=== PATIENT | male | born 1980 | race Caucasian/White ===

== ENCOUNTER 2018-03-22 05:28 | Emergency (ER) | payer BC ==
[2018-03-22] MEDS ORDERED: Sodium Chloride 0.9% 1,000 ML IV ONE (05:41)
--- NOTE | 2018-03-22 05:43 | EDM.PDOC ---
ED HPI GENERAL MEDICAL PROBLEM - General Chief Complaint: General Stated Complaint: HEAT EXHAUSTION Time Seen by Provider: 03/22/18 05:37 - History of Present Illness INITIAL COMMENTS - FREE TEXT/NARRATIVE: HISTORY AND PHYSICAL: History of present illness: Patient 37-year-old white male presents with a concern of possible heat illness. He was at a wedding recently was outdoors he felt somewhat poor after wetting is out working yesterday and states he felt nauseous he's had some diarrhea and a subsequent relearned that many people at the wedding were feeling similar. No reported fever no chest pain shortness breath no abdominal pain or other concern Review of systems: As per history of present illness and below otherwise all systems reviewed and negative. Past medical history: As per history of present illness and as reviewed below otherwise noncontributory. Surgical history: As per history of present illness and as reviewed below otherwise noncontributory. Social history: No reported history of drug or alcohol abuse. Family history: As per history of present illness and as reviewed below otherwise noncontributory. Physical exam: HEENT: Atraumatic, normocephalic, pupils reactive, negative for conjunctival pallor or scleral icterus, mucous membranes dry throat clear, neck supple, nontender, trachea midline. Lungs: Clear to auscultation, breath sounds equal bilaterally, chest nontender. Heart: S1S2, regular, negative for clicks, rubs, or JVD. Abdomen: Soft, nondistended, nontender. Negative for masses or hepatosplenomegaly. Negative for costovertebral tenderness. Pelvis: Stable nontender. Genitourinary: Deferred. Rectal: Deferred. Extremities: Atraumatic, negative for cords or calf pain. Neurovascular unremarkable. Neuro: Awake, alert, oriented. Cranial nerves II through XII unremarkable. Cerebellum unremarkable. Motor and sensory unremarkable throughout. Exam nonfocal. Diagnostics: CBC CMP chest x-ray UA Therapeutics: Saline 1 L bolus Zofran 4 mg IV Impression: #1 dehydration #2 probable viral illness Definitive disposition and diagnosis as appropriate pending reevaluation and review of above. ED ROS GENERAL - Review of Systems Review Of Systems: ROS reveals no pertinent complaints other than HPI. ED EXAM, GENERAL - Physical Exam Exam: See Below (See dictation) Course - Orders/Labs/Meds Orders: Active Orders 24 hr Category Date Time Status CBC W/O DIFF,HEMOGRAM [HEME] Stat Lab 03/22/18 05:40 Ordered COMPREHENSIVE METABOLIC PN,CMP [CHEM] Stat Lab 03/22/18 05:40 Ordered URINALYSIS W/MICROSCOPIC [UA W/MICROSCOPIC] [URIN] Stat Lab 03/22/18 05:40 Ordered Departure - Departure Time of Disposition: 05:42 Disposition: Home, Self-Care 01 Condition: Good Clinical Impression: Dehydration, Viral syndrome - Discharge Information Referrals: PCP,None [Primary Care Provider] - - My Orders Last 24 Hours: My Active Orders 03/22/18 05:40 CBC W/O DIFF,HEMOGRAM [HEME] Stat COMPREHENSIVE METABOLIC PN,CMP [CHEM] Stat URINALYSIS W/MICROSCOPIC [UA W/MICROSCOPIC] [URIN] Stat - Assessment/Plan Last 24 Hours: My Active Orders 03/22/18 05:40 CBC W/O DIFF,HEMOGRAM [HEME] Stat COMPREHENSIVE METABOLIC PN,CMP [CHEM] Stat URINALYSIS W/MICROSCOPIC [UA W/MICROSCOPIC] [URIN] Stat
[2018-03-22] MEDS ORDERED: Ondansetron 4 MG/2 ML SDV IVPUSH ONE (06:07)
[2018-03-22 06:24] LABS: CHLORIDE,CL 103 mmol/L (98-107); SODIUM,NA 139 mmol/L (136-148)
[2018-03-22] MEDS ORDERED: Sodium Chloride 0.9% 1,000 ML IV SCH (06:45)
--- NOTE | 2018-03-23 10:49 | CR ---
EXAM DATE: 03/22/18 PATIENT'S AGE: 37 Patient: GUILLAUME BEYER Facility: [facility] Site . Site : [id number] Study: XRay-Chest [id number]/15/2018 6:21:04 AM Ordering Physician: Doctor Duckworth Final Report: HISTORY: Cough. TECHNIQUE: One view of the chest. COMPARISON: No prior. FINDINGS: Borderline mild cardiomegaly. No pulmonary vascular redistribution. There is a nodular opacity present lateral to the left heart border which could relate to a pulmonary nodule or possibly confluence of vascular markings with a posterior rib. There is no lung consolidation or pulmonary edema. No pneumothorax or pleural effusion. IMPRESSION: 1. Borderline cardiomegaly accounting for AP technique. 2. No consolidation or pulmonary edema. 3. Nodular opacity lateral to the left heart border which could relate either to a pulmonary nodule or possibly confluence of vascular markings with a posterior rib. Consider PA and lateral chest radiographs for followup. Comparison could be made with prior studies if available. Dictated by Jeramy Cortez MD @ 03/22/2018 6:36:50 AM Dictated by: Jeramy Cortez MD @ 03/22/2018 06:36:52 Signed by: Jeramy Cortez MD @03/22/2018 6:36:52 AM (Electronic Signature) Report Signed by Proxy. [facility]
== END 2018-03-22 08:39 | disposition home or self-care (01) ==
LOC: MW.ED 05:28
DX: E86.0 Dehydration (principal); B34.9 Viral infection, unspecified
CPT/HCPCS: 36415; 71045; 80053; 81001; 85025; 96361; 96374; 99284; J2405; J7040; 99283

== ENCOUNTER 2019-08-13 19:00 | Emergency (ER) | payer BC ==
--- NOTE | 2019-08-13 20:55 | EDM.PDOC ---
ED HPI GENERAL MEDICAL PROBLEM - General Chief Complaint: Gastrointestinal Problem Stated Complaint: LOST WEIGHT, NO APPETITE Time Seen by Provider: 08/13/19 20:49 Source of Information: Reports: Patient History Limitations: Reports: No Limitations - History of Present Illness INITIAL COMMENTS - FREE TEXT/NARRATIVE: 39-year-old male who presents the emergency room chief complaint of cough fever anorexia for the last week. Patient states that his daughter had influenza B a week ago and was treated. Patient states he has no previous medical problems and this feels horrible Duration: Week(s):, Getting Worse Location: Reports: Chest, Abdomen Severity: Moderate Improves with: Reports: None Worsens with: Reports: None Associated Symptoms: Reports: No Other Symptoms, Nausea/Vomiting, Shortness of Breath, Weakness Right Lower Abdominal Pain Score (Numeric/FACES): 3 - Related Data Allergies Allergy/AdvReac Type Severity Reaction Status Date / Time Penicillins Allergy Difficulty Verified 08/13/19 20:23 Breathing Home Meds: Home Meds . [No Known Home Meds] 03/22/18 [History] Past Medical History - Past Health History Medical/Surgical History: Denies Medical/Surgical History - Infectious Disease History Infectious Disease History: Reports: Chicken Pox Social & Family History - Family History Family Medical History: Noncontributory - Tobacco Use Smoking Status *Q: Never Smoker Second Hand Smoke Exposure: No - Caffeine Use Caffeine Use: Reports: None - Recreational Drug Use Recreational Drug Use: No ED ROS GENERAL - Review of Systems Review Of Systems: Comprehensive ROS is negative, except as noted in HPI. Constitutional: Reports: Chills, Weakness, Fatigue HEENT: Reports: No Symptoms Respiratory: Reports: Shortness of Breath, Cough Cardiovascular: Reports: No Symptoms Endocrine: Reports: No Symptoms GI/Abdominal: Reports: No Symptoms, Nausea, Vomiting : Reports: No Symptoms Musculoskeletal: Reports: No Symptoms Skin: Reports: No Symptoms Neurological: Reports: No Symptoms Psychiatric: Reports: No Symptoms Hematologic/Lymphatic: Reports: No Symptoms Immunologic: Reports: No Symptoms ED EXAM, GI/ABD - Physical Exam Exam: See Below Exam Limited By: No Limitations General Appearance: Alert, WD/WN, No Apparent Distress Eyes: Bilateral: Normal Appearance Ears: Normal External Exam, Normal Canal, Hearing Grossly Normal, Normal TMs Nose: Normal Inspection, Normal Mucosa, No Blood Throat/Mouth: Normal Inspection, Normal Lips, Normal Teeth, Normal Gums Head: Atraumatic, Normocephalic Neck: Normal Inspection, Supple, Non-Tender, Full Range of Motion Respiratory/Chest: No Respiratory Distress, Lungs Clear, Normal Breath Sounds, No Accessory Muscle Use, Chest Non-Tender Cardiovascular: Normal Peripheral Pulses, Regular Rate, Rhythm, No Edema, No Gallop, No JVD, No Murmur, No Rub GI/Abdominal Exam: Normal Bowel Sounds, Soft, Non-Tender, No Organomegaly, No Distention, No Abnormal Bruit, No Mass, Pelvis Stable (Male) Exam: Deferred Rectal (Males) Exam: Deferred Back Exam: Normal Inspection, Full Range of Motion Extremities: Normal Inspection, Normal Range of Motion, Non-Tender, No Pedal Edema, Normal Capillary Refill Neurological: Alert, Oriented, CN II-XII Intact, Normal Cognition, Normal Gait, Normal Reflexes, No Motor/Sensory Deficits Psychiatric: Normal Affect, Normal Mood Skin Exam: Warm, Dry, Intact, Normal Color Course - Vital Signs Last Recorded V/S: Last Vital Signs Temp 98.8 F 08/13/19 20:23 Pulse 63 08/13/19 20:23 Resp 16 08/13/19 20:23 BP 167/91 H 08/13/19 20:23 Pulse Ox 96 08/13/19 20:23 - Orders/Labs/Meds Orders: Active Orders 24 hr Category Date Time Status CULTURE STREP A CONFIRMATION [] Stat Lab 08/13/19 22:05 Results STREP SCRN A RAPID W CULT CONF [] Stat Lab 08/13/19 22:05 Results Labs: Laboratory Tests 08/13/19 08/13/19 Range/Units 21:05 21:05 WBC 10.29 (4.0-11.0) K/uL RBC 5.47 (4.50-5.90) M/uL Hgb 17.0 (13.0-17.0) g/dL Hct 48.0 (38.0-50.0) % MCV 87.8 (80.0-98.0) fL MCH 31.1 (27.0-32.0) pg MCHC 35.4 (31.0-37.0) g/dL RDW Std Deviation 40.1 (28.0-62.0) fl RDW Coeff of Dianelys 13 (11.0-15.0) % Plt Count 235 (150-400) K/uL MPV 9.60 (7.40-12.00) fL Neut % (Auto) 76.8 (48.0-80.0) % Lymph % (Auto) 14.8 L (16.0-40.0) % Rooks % (Auto) 6.6 (0.0-15.0) % Eos % (Auto) 1.5 (0.0-7.0) % Baso % (Auto) 0.3 (0.0-1.5) % Neut # (Auto) 7.9 H (1.4-5.7) K/uL Lymph # (Auto) 1.5 (0.6-2.4) K/uL Rooks # (Auto) 0.7 (0.0-0.8) K/uL Eos # (Auto) 0.2 (0.0-0.7) K/uL Baso # (Auto) 0.0 (0.0-0.1) K/uL Nucleated RBC % 0.0 /100WBC Nucleated RBCs # 0 K/uL Sodium 141 (136-148) mmol/L Potassium 3.9 (3.5-5.1) mmol/L Chloride 103 (98-107) mmol/L Carbon Dioxide 29.2 (21.0-32.0) mmol/L BUN 20 H (7.0-18.0) mg/dL Creatinine 1.1 (0.8-1.3) mg/dL Est Cr Clr Drug Dosing 93.09 mL/min Estimated GFR (MDRD) > 60.0 ml/min Glucose 97 (74-106) mg/dL Calcium 9.1 (8.5-10.1) mg/dL Total Bilirubin 0.4 (0.2-1.0) mg/dL AST 19 (15-37) IU/L ALT 33 (14-63) IU/L Alkaline Phosphatase 82 (46-116) U/L Total Protein 8.0 (6.4-8.2) g/dL Albumin 4.5 (3.4-5.0) g/dL Globulin 3.5 (2.6-4.0) g/dL Albumin/Globulin Ratio 1.3 (0.9-1.6) Meds: Medications Discontinued Medications Generic Name Dose Route Start Last Admin Trade Name Freq PRN Reason Stop Dose Admin Sodium Chloride 1,000 mls @ 1,000 mls/hr 08/13/19 21:10 08/13/19 21:14 Normal Saline IV 08/13/19 22:09 1,000 mls/hr .Bolus ONE Administration Departure - Departure Time of Disposition: 22:37 Disposition: Home, Self-Care 01 Condition: Good Clinical Impression: Bronchitis - Discharge Information Referrals: PCP,None [Primary Care Provider] - Forms: ED Department Discharge Sepsis Event Note - Evaluation Sepsis Screening Result: No Definite Risk - Focused Exam Vital Signs: Vital Signs Temp Pulse Resp BP Pulse Ox 08/13/19 20:23 98.8 F 63 16 167/91 H 96 Date Exam was Performed: 08/13/19 Time Exam was Performed: 22:36 - My Orders Last 24 Hours: My Active Orders 08/13/19 22:05 CULTURE STREP A CONFIRMATION [RM] Stat STREP SCRN A RAPID W CULT CONF [RM] Stat - Assessment/Plan Last 24 Hours: My Active Orders 08/13/19 22:05 CULTURE STREP A CONFIRMATION [RM] Stat STREP SCRN A RAPID W CULT CONF [RM] Stat
[2019-08-13] MEDS ORDERED: Sodium Chloride 0.9% 1,000 ML IV ONE (21:10)
[2019-08-13 21:39] LABS: BLOOD UREA NITROGEN,BUN 20 mg/dL (7.0-18.0); CARBON DIOXIDE,CO2 29.2 mmol/L (21.0-32.0); CHLORIDE,CL 103 mmol/L (98-107); GLUCOSE RANDOM 97 mg/dL (74-106); POTASSIUM,K 3.9 mmol/L (3.5-5.1); SODIUM,NA 141 mmol/L (136-148)
--- NOTE | 2019-08-13 21:56 | CR ---
INDICATION: Cough, shortness of breath, loss of appetite. COMPARISON: 03/22/2018. FINDINGS/IMPRESSION: Large retrocardiac hiatal hernia, stable to slightly increased in size from before. No definite pulmonary consolidation, pleural effusion, or other acute intrathoracic findings. Normal heart size, allowing for AP technique. Unremarkable bony structures. Dictated by Adrien Alex MD @ 08/13/2019 9:56:35 PM Dictated by: Adrien Alex MD @ 08/13/2019 21:56:49 (Electronically Signed)
== END 2019-08-13 22:48 | disposition home or self-care (01) ==
LOC: MW.ED 19:00
DX: J40 Bronchitis, not specified as acute or chronic (principal); Z88.0 Allergy status to penicillin
CPT/HCPCS: 36415; 71045; 80053; 85025; 87081; 87804; 87880; 96360; 99283; J7030